=== PATIENT | female | born 1985 | race Caucasian/White ===

== ENCOUNTER 2022-07-23 11:46 | Emergency (ER) | payer SELFPAY ==
[~2022-07-23] VITALS: Ht 160 cm; Wt 98.1 kg
[2022-07-23 12:07] VITALS: BP 147/78
[2022-07-23] MEDS ORDERED: DICYCLOMINE HCL LIQUID 20 MG, ALUMINUM HYD/MAG/SIMETHICONE 30 ML, LIDOCAINE VISCOUS 2% ... PO ONE ×3 (13:00)
[2022-07-23] MEDS ORDERED: ALUMINUM HYD/MAG/SIMETHICONE 30 ML UDC ONE (13:06)
[2022-07-23] MEDS ORDERED: DICYCLOMINE HCL LIQUID 10 MG/5 ML UDC ONE (13:06)
[2022-07-23 13:57] LABS: BASOPHILS % (AUTO) 0.4 % (0.0-2.0); EOSINOPHILS # (AUTO) 0.2 K/uL (0-0.4); HEMATOCRIT 36.2 % (36-48); HEMOGLOBIN 12.2 g/dL (12.0-16.0); LYMPHOCYTES # (AUTO) 2.4 K/uL (2.5-16.5); LYMPHOCYTES % (AUTO) 31.4 % (20.5-51.1); MEAN CORPUSCULAR HEMOGLOBIN 28 pg (27-31); MEAN CORPUSCULAR HGB CONC 34 g/dL (33-37); MONOCYTES # (AUTO) 0.6 K/uL (0.8-1.0); MONOCYTES % (AUTO) 7.2 % (1.7-9.3); NEUTROPHILS # (AUTO) 4.5 K/uL (1.8-7.7); PLATELET COUNT (AUTO) 326 K/uL (140-450); RED BLOOD CELL COUNT(AUTO) 4.36 MIL/uL (4.20-5.40); RED CELL DISTRIBUTION WIDTH 13.4 % (11.6-13.7); WHITE BLOOD COUNT (AUTO) 7.7 K/uL (4.8-10.8)
[2022-07-23] MEDS ORDERED: SIME125T38 PO (13:57)
[2022-07-23] MEDS ORDERED: FAMO-90 PO (13:57)
[2022-07-23] MEDS ORDERED: ONDA-188 PO (13:57)
[2022-07-23] MEDS ORDERED: ACET-9527 PO (13:57)
[2022-07-23 14:09] LABS: ALBUMIN 4.3 g/dL (3.4-5.0); ANION GAP 10.6 (8-16); CARBON DIOXIDE 29.9 mmol/L (21-32); CREATININE 0.6 mg/dL (0.6-1.3); POTASSIUM 4.5 mmol/L (3.5-5.1); TOTAL BILIRUBIN 0.6 mg/dL (0.0-1.0)
[2022-07-23 14:32] VITALS: BP 125/68
== END 2022-07-23 14:32 | disposition home or self-care (01) ==
LOC: MED 11:46
DX: K29.70 Gastritis, unspecified, without bleeding (principal); K80.20 Calculus of gallbladder without cholecystitis without obstruction; Z79.899 Other long term (current) drug therapy
CPT/HCPCS: 36415; 76705; 80053; 81025; 85025; 99284; Q0092